=== PATIENT | female | born 2000 | race Caucasian/White ===

== ENCOUNTER 2023-01-31 17:26 | Inpatient (IN) | payer OTHER, SELFPAY ==
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
[2023-01-31 18:14] VITALS: BP 132/77
[2023-01-31 18:15] LABS: Hematocrit 36.8 % (36-46); Hemoglobin 12.6 g/dL (12.0-16.0); Mean Corpuscular HGB Conc 34.4 % (30-36); Mean Corpuscular Hemoglobin 28.7 PG (26-34); Mean Corpuscular Volume 83.5 fL (80-100); Platelet Count 159 X10^3/uL (150-400); Red Cell Distribution Width 13.4 % (11.6-14.8); White Blood Cell Count 15.5 X10^3/uL (4.5-11.0)
[2023-01-31 18:16] LABS: Add Manual Diff / Slide Review YES
[2023-01-31 18:18] VITALS: BP 132/77; PULSE 86; RESP 14; TEMP 36.8
[2023-01-31 19:03] LABS: Neutrophils Absolute Manual 12865 /uL (3000-5900); RBC Morphology Normal Morphology; Total Cells Counted 100
[2023-01-31 19:04] LABS: Toxic Granulation Present
--- NOTE | 2023-02-01 00:16 | PM.OBPNLAB ---
Date/Time Date Patient Seen: 01/31/23 Time Patient Seen: 23:30 Pain Control Pain control: tolerating well Comments: Cecilia is lying in bed, on her left side. Says this position makes it the most intense. Was up walking around earlier. Working hard with contractions - focused and breathing through them. Well supported by Jace. Still feeling contractions in low back and low abdomen. Pelvic Exam Dilation (cm): 6.5 Effacement (%): 80 Comments: SVE 6.5/85/-1 by SNM Membranes palpated intact Vital Signs: BP 121/74 HR 78 bpm RR 16/min Temp 36.5 temporal Contractions Date/Time contractions began: 01/31/23 at 0430 Contractions on admission: regular Monitor mode: External Contraction frequency (min): 3 Contraction duration (min): 1 Contraction pattern: Regular Status Comments: FHR with baseline 140, increases noted, decreases absent. Assessment and Plan Assessment: active labor Plan: continuous present management
[2023-02-01] MEDS: fentaNYL 100 MCG/2 ML INJ IV ×2 (03:16→04:20)
--- NOTE | 2023-02-01 03:38 | PM.OBPNLAB ---
Date/Time Date Patient Seen: 02/01/23 Time Patient Seen: 02:45 Pain Control Pain control: tolerating well Comments: Cecilia moved from laboring in the tub to hands and knees on the bed, breathing well through contractions. Well supported by Jace and SNM. Feeling pain all over but mostly in her back and front of her pelvis. Coping the best in hands and knees position. BP: 123/74 Pulse: 103bpm Temp: 36.7*C O2 Sat: 100% Pelvic Exam Dilation (cm): 6.5 Effacement (%): 90 station: -1 Amniotic membrane status: Bulging Contractions Monitor mode: External Contraction frequency (min): 3 Contraction pattern: Regular Contraction intensity: Strong/Firm Status status: Category l Heart Rate Baseline: 136 Monitor Variability: Moderate Assessment and Plan Comments: A: Term nullip Active labor Unchanged cervical dilation Bulging bag of vee Coping well with pain Reassuring FHR by doppler P: Discussed augmentation and pain interventions with patient Consented to Fentanyl IV 100mg for rest and AROM afterwards Anticipate continued labor, NSVB Reassess in 1hr or sooner if indicated
[2023-02-01] MEDS: LACTATED RINGERS 1,000 ML 100 ML IV ×3 (04:31→19:19)
--- NOTE | 2023-02-01 04:34 | PM.OBPNLAB ---
Date/Time Date Patient Seen: 02/01/23 Time Patient Seen: 04:00 Pain Control Pain control: narcotic analgesia Comments: Cecilia rested comfortably after first dose of fentanyl. Contraction pain returned to 8/10, tolerating and coping well. Additional dose of IV Fentanyl given, patient experienced naeusa and emisis. AROM, tolerated well. 500mL fluid bolus of LR was started. She is resting comfortably on her left side. BP:107/71 Pulse: 57bpm Temp:36.7*C Pelvic Exam Dilation (cm): 6.5 Effacement (%): 90 station: -1 Amniotic membrane status: Ruptured Comments: AROM with moderate amount clear, pink tinged fluid at approx 0430 Contractions Monitor mode: External Contraction frequency (min): 4 Contraction pattern: Regular Contraction intensity: Strong/Firm Status status: Category l Heart Rate Baseline: 128 Monitor Accelerations: Present Monitor Variability: Moderate Assessment and Plan Comments: A: Ruptured membranes Coping well with pain management Reassuring FHR via doppler P: Requested additional dose Fentanyl IV 100mg for rest Consented to AROM Anticipate continued labor, NSVB Reassess in 2 hours or sooner if indicated
--- NOTE | 2023-02-01 09:30 | PM.OBPRVD ---
Events: Labor Augmentation (AROM) Labor & Delivery Delivery date: 02/01/23 Intrapartal Events: Prolonged Labor > 20 hours Delivery augmentation: rupture of membranes Delivery monitor: external FHT Route of delivery: L&D Laceration Description: Vaginal - 1st Degree and Superficial (periurethral) Quantitative Blood Loss: 393 Anesthesia Type: None Narrative: Labor progressed well. She requested NO2 and utilized throughout second stage. She felt the spontaneous urge to push at approx 0625 and pushed for about 20min. A sterile cervical exam by SNM showed anterior lip from 6-8 o'clock with swollen cervix at 6 o'clock 100/0. She labored on her left side and another cervical exam showed complete and 0 station. She started pushing at 0725 and labored effectively for a average 2nd stage. FHR was reassuring by intermittent auscultation throughout 2nd stage. NSVB of baby in a standing position at 0855, shoulders delivered easily, terminal mec noted. Baby was passed through maternal legs to be held when she was ready to receive him, then placed on the bed as she was helped to laying down and skin to skin. Apgars 9/9. Pitocin was started at 350 mu/min. They remained skin to skin while cord was cut and placenta was delivered. Placenta delivered spontaneously with maternal efforts and appeared to be intact. 3 vessel cord clamped and cut by Jace and delivered in the typical amount of time after cord pulsing had stopped. Cord blood collected and sent for blood typing. Perineum inspected and found to be intact. Shallow periurethral lacerations noted bilaterally and 1st degree vaginal laceration hemostatic and not in need of repair. Blood loss measured and quantitative loss is 393 mL. Mom and baby left stable and is being initiated. Cecilia and Jace are thrilled to meet their baby. Nikole KRAUSE, CNM, IBCLC Yaquelin Cm RN, SNM [place] Baby 1: Infant gender: Male Presentation: vertex Position: Right Occiput Anterior Placenta delivery description: Spontaneous Cord Vessel Description: 3 Vessels score (1 min): 9 score (5 min): 9 Plan for aftercare: Routine care
[2023-02-01] MEDS: DERMOPLAST SPRAY 20% 60 ML 1 SPRAY TOP (11:06)
[2023-02-01] MEDS: KETOROLAC 30 MG/ML VIAL IV ×2 (11:07→19:55)
[2023-02-01] MEDS: LANOLIN OINT 7 GM 1 APPLIC TOP (11:07)
[2023-02-01] MEDS: ACETAMINOPHEN 325 MG TABLET 975 MG PO ×2 (14:15→22:19)
[2023-02-01] MEDS: METHYLERGONOVINE 0.2 MG/ML VIAL IM (15:58)
[2023-02-01] MEDS: OXYTOCIN PREMIX 30 UNIT/500 ML PLAST..BAG 200 UNIT IV (16:20)
[2023-02-01] MEDS: TRANEXAMIC ACID 1,000 MG in SODIUM CHLORIDE 0.9% 100 ML 200 MG IV (17:14)
--- NOTE | 2023-02-01 17:41 | P.PNOB_ITS ---
Subjective - OB Subjective Interval history: Day of Delivery: 9 hours s/p NSBV with a 1st degree perineal laceration and 443mL QBL at the . Has had normal fundal checks with small, normal bleeding and as able to void in the shower around 1000. Was taking a nap and awoke gushing blood at 1525. Was assisted to the bathroom where she passed multiple large clots. Bladder was scanned for 46mL and patient was bale to void 50mL. A second bag of 30u of pitocin in 500mL LR was started and 0.2mg IM Methergine was given. Bleeding slowed after clots were passed and funds has remained firm at U-1. 2866mL total QBL after all pads and clots weighed. Cecilia is curently sitting up in bed, nursing her son. Denies feeling lightheaded or dizzy and reports bleeding had remained minimal since 1525 episode. remains supportive at her side. Exam Vital Signs (past 8 hours): BP 116/85, HR 95, T 98.7F Temporal Other: Fundus firm @ U-1, lochia scant, minimal edema. Objective Labs 01/31/23 17:14 Labs: Laboratory Results - last 24 hr 01/31/23 01/31/23 17:14 17:14 WBC 15.5 H RBC 4.40 Hgb 12.6 Hct 36.8 MCV 83.5 MCH 28.7 MCHC 34.4 RDW 13.4 Plt Count 159 Neut % (Auto) Not Reportable Lymph % (Auto) Not Reportable [place] % (Auto) Not Reportable Eos % (Auto) Not Reportable Baso % (Auto) Not Reportable Lymph # (Auto) Not Reportable [place] # (Auto) Not Reportable Baso # (Auto) Not Reportable Total Counted 100 Seg Neutrophils % 83.0 H Band Neutrophils % 0.0 L Lymphocytes % (Manual) 11.0 L Atypical Lymphs % 0.0 Monocytes % (Manual) 4.0 Eosinophils % (Manual) 0.0 L Basophils % (Manual) 0.0 Neutrophils # (Manual) 32324 H Toxic Granulation Present H RBC Morphology Normal morphology Blood Type O Positive Antibody Screen Negative Assessment & Plan Assessment and Plan (1) hemorrhage: Status: Acute Assessment and plan: stable Plan day: 0 Comments: Suspect urine mixed with blood loss in bed. CBC in 6 hours. 2L IVFB and close monitoring. TXA IV and PO methergine series initiated. Notified [facility]/ notified and agreed with plan. Time Spent With Patient Time: Total time spent is greater than 50% in coordination of care (as documented) at patient's floor/unit and/or counseling patient: Time with patient: 15-24 minutes
[2023-02-01] MEDS: METHYLERGONOVINE 0.2 MG TABLET PO (22:19)
[2023-02-02 00:23] LABS: Add Manual Diff / Slide Review NO; Basophils Absolute Auto 0 /uL (0-100); Basophils Percent Auto 0.2 % (0-2); Eosinophils Absolute Auto 0 /uL (0-450); Eosinophils Percent Auto 0.3 % (2-4); Hematocrit 25.6 % (36-46); Hemoglobin 8.6 g/dL (12.0-16.0); Lymphocytes Absolute Auto 1800 /uL (1100-4500); Lymphocytes Percent Auto 12.4 % (25-40); Mean Corpuscular HGB Conc 33.7 % (30-36); Mean Corpuscular Hemoglobin 28.4 PG (26-34); Mean Corpuscular Volume 84.1 fL (80-100); Monocytes Absolute Auto 1200 /uL (0-900); Monocytes Percent Auto 8.4 % (3-14); Neutrophils Absolute Auto 11200 /uL (1500-7000); Neutrophils Percent Auto 78.7 % (50-75); Platelet Count 128 X10^3/uL (150-400); Red Blood Cell Count 3.05 X10^6/uL (4.0-5.2); Red Cell Distribution Width 13.5 % (11.6-14.8); White Blood Cell Count 14.2 X10^3/uL (4.5-11.0)
[2023-02-02] MEDS: METHYLERGONOVINE 0.2 MG TABLET PO ×3 (04:44→19:34)
[2023-02-02] MEDS: KETOROLAC 30 MG/ML VIAL IV (04:44)
[2023-02-02] MEDS: IRON SUCROSE 300 MG in SODIUM CHLORIDE 0.9% 250 ML 176.667 MG IV (08:00)
[2023-02-02] MEDS: LANOLIN OINT 7 GM 1 APPLIC TOP (09:46)
[2023-02-02 09:47] VITALS: TEMP 36.6
[2023-02-02] MEDS: ACETAMINOPHEN 325 MG TABLET 975 MG PO ×2 (09:47→18:43)
--- NOTE | 2023-02-02 09:54 | P.PNOB_ITS ---
Subjective - OB Subjective Interval history: PPD1: Stable s/p NSVB w/ 1st degree vaginal laceration with PPH 6 hours . Sitting up her baby, requiring support and encouragement for ambulation d/t discomfort, voiding normally when prompted. No longer feeling light headed or dizzy, feeling better after IV iron. Tolerating a general diet. Pain plan currently is Tylenol and IV toradol, she has been hesitant to take available pain medication. She says she has felt trickling of blood, but no gushes or passing of clots. Bonding well with baby. Partner present and supportive. Exam Vital Signs (past 8 hours): - 02/02/23 0552 Temperature 98.3 F HR 100 RR:16 BP: 100/57 Sp O2: 99% RA Other: Fundus firm U-1 Lochia: rubra, scant, no clots Perineum intact, minimal edema Objective Labs 02/02/23 00:12 Labs: Laboratory Results - last 24 hr 02/02/23 00:12 WBC 14.2 H RBC 3.05 L Hgb 8.6 L Hct 25.6 L MCV 84.1 MCH 28.4 MCHC 33.7 RDW 13.5 Plt Count 128 L Neut % (Auto) 78.7 H Lymph % (Auto) 12.4 L [place] % (Auto) 8.4 Eos % (Auto) 0.3 L Baso % (Auto) 0.2 Neut # (Auto) 20641 H Lymph # (Auto) 1800 [place] # (Auto) 1200 H Eos # (Auto) 0 Baso # (Auto) 0 Assessment & Plan Assessment and Plan (1) hemorrhage: Status: Acute Assessment and plan: Stable no further bleeding (2) Anemia, : Status: Acute Assessment and plan: IV iron one dose given this morning, second dose planned for tomorrow Plan day: 1 plan OB: routine care and other Comments: Recommend additional 24hours of observation, discharge tomorrow d/t PPH and anemia. Time Spent With Patient Time: Total time spent is greater than 50% in coordination of care (as documented) at patient's floor/unit and/or counseling patient: Time with patient: Greater than 35 minutes
[2023-02-02 10:25] VITALS: TEMP 36.6
[2023-02-02] MEDS: DOCUSATE 100 MG CAPSULE PO ×2 (10:25→19:34)
[2023-02-02] MEDS: OXYCODONE IR 5 MG TABLET PO (10:25)
[2023-02-02] MEDS: IBUPROFEN 600 MG TABLET PO ×2 (16:23→22:38)
[2023-02-03] VITALS (13 sets, daily range): BP systolic 113–130; BP diastolic 64–87; PULSE 87–110; RESP 15–16; TEMP 36.8–37.1
[2023-02-03] MEDS: ACETAMINOPHEN 325 MG TABLET 975 MG PO ×2 (03:45→15:38)
[2023-02-03] MEDS: IBUPROFEN 600 MG TABLET PO ×2 (06:39→15:37)
[2023-02-03] MEDS: IRON SUCROSE 300 MG in SODIUM CHLORIDE 0.9% 250 ML 176.667 MG IV (06:40)
[2023-02-03 07:15] LABS: Basophils Absolute Auto 0 /uL (0-100); Basophils Percent Auto 0.3 % (0-2); Eosinophils Absolute Auto 300 /uL (0-450); Hemoglobin 7.1 g/dL (12.0-16.0); White Blood Cell Count 10.2 X10^3/uL (4.5-11.0)
[2023-02-03 07:20] LABS: Add Manual Diff / Slide Review NO; Lymphocytes Absolute Auto 1400 /uL (1100-4500); Lymphocytes Percent Auto 13.5 % (25-40); Mean Corpuscular HGB Conc 34.6 % (30-36); Mean Corpuscular Hemoglobin 29.7 PG (26-34); Mean Corpuscular Volume 85.7 fL (80-100); Monocytes Absolute Auto 700 /uL (0-900); Monocytes Percent Auto 6.5 % (3-14); Neutrophils Absolute Auto 7800 /uL (1500-7000); Neutrophils Percent Auto 76.7 % (50-75); Platelet Count 116 X10^3/uL (150-400); Red Cell Distribution Width 13.1 % (11.6-14.8)
--- NOTE | 2023-02-03 07:35 | P.DS_ITS ---
Discharge Providers Provider Date of admission: 01/31/23 17:26 Discharge Date: 02/03/23 Consults: 02/02/23 09:23 Consult to Nursing Administrator Routine Comment: Discharge provider: Karine Borges CNM Summary Hospital Course Date Patient Seen: 02/03/23 Time Patient Seen: 16:30 Diagnoses: O70.0, O72.1, D64.9 Hospital Course: PPD2: Stable s/p NSBV with 1st degree vaginal laceration and hemorrhage at 6 hours . Vaginal bleeding has remained light, without clots since 02/01/23 PPH. Has received 2 doses of IV Fe was feeling well during rounds at 0745. Then had episode of near syncope around 0800 with additional drop in H/H noted on CBC this morning. Was counseled on the risks and benefits of a blood transfusion, which she consented to. 2 units PRBCs were transfused and she is feeling much better. She also received a pelvic ultrasound which was not concerning for retained POCs. Voiding, ambulating and independently without feeling light headed or dizzy. Tolerating a general diet. Pain is well controlled with PO medication. Partner is supportive at her side and will be with her at home for continuous support. Peripartum Data Delivery Method: Natural Vaginal Laceration Description: Vaginal - 1st Degree Episiotomy description: None 1: Gender: Male Disposition of : home Discharge Diagnosis (1) hemorrhage: Start Date: 02/01/23 Status: Acute Problem Details: stable with no recurrence of heavy bleeding (2) Anemia, : Status: Acute Problem Details: treated with IV Fe (600mg total) 2 units of PRBCs ordered after 02/03/23 CBC resulted and patient became symptomatic for hypovolemia. Consulted [facility]/ Dr. Martni at time of hemorrhage and prior to transfusion. Status at Discharge Cognitive/behavioral status at discharge: oriented and calm Functional status at discharge: independent ambulation Overall status at discharge: patient is progressing back to baseline Time Spent with Patient Time attestation: Total time spent providing and/or coordinating discharge services: Objective Labs 02/03/23 06:48 Exam Vital Signs (past 8 hours): HR 87bpm, BP 105/58, RR 16, T 98.0F SpO2 98% on RA Other: fundus firm @ u-2, lochia scant, no clots. Perineum intact with minimal edema. Discharge Plan Discharge Plan Patient Disposition: Home Discharge orders & Medications Prescriptions: New docusate sodium 100 mg Capsule 100 mg PO BID 14 Days Qty: 28 0RF ibuprofen 600 mg Tablet 600 mg PO Q6HR PRN (Reason: Pain, Mild (1-3)) 14 Days Qty: 60 0RF Continued prenat.vits,jacquie,fqs-zzgv-hbetu Tablet See Protocol PO DAILY Protocol: TITRATE PER PROTOCOL Follow up/Referrals: Nikole Hays, BABATUNDE, NELIDA [[employer]] - (Follow-up with CNMs at 1 week , in the office for a check-in and CBC. Follow up with CNMs at 2 weeks by phone and 6 weeks in office, as scheduled. Appointments are in your email. ) Diet/Activity/Treatments Diet: Diet as Tolerated and Regular Activity: pelvic rest x 6 weeks Skin/Wound/Dressing Care Report to your healthcare provider any signs of infection, such as:: chills, fever, increased pain, unusual drainage and unusual redness Visit Report/Discharge Packet Instructions: DI for Labor and Delivery, Vaginal , DI for Depression Stand Alone Forms: Discharge: Care, Patient Portal/API, Stroke Signs & Symptoms Discharges patient from system. Discharge Date/Time: 02/03/23 20:32
[2023-02-03 08:16] LABS: Hematocrit 20.5 % (36-46)
[2023-02-03] MEDS: DOCUSATE 100 MG CAPSULE PO (08:51)
--- NOTE | 2023-02-03 13:19 | DI.US.S_ITS ---
PROCEDURE: US PELVIC COMPLETE INDICATIONS: HEMORRAGE ?RETAINED PRODUCTS. 2 DAYS . TECHNIQUE: Real-time scanning was performed of the pelvic organs, with image documentation. Additional endovaginal scanning was necessary due to incomplete visualization of the adnexal and endometrial structures by transabdominal scanning. COMPARISON: None. FINDINGS: Uterus: Uterus is anteverted and normal in size at 19.5 x 14.5 x 7.9 cm. The myometrium is heterogeneous. The endometrium measures 15.1 mm combined thickness and heterogeneous in echotexture. There is fluid collection within the in the endometrial cavity. Ovaries: The right ovary measures 3.4 x 2.5 x 2.0 cm, with a calculated ovarian volume of 8.8 cc. The left ovary measures 3.5 x 1.8 x 1.9 cm, with a calculated ovarian volume of 6.2 cc. The ovaries have a normal sonographic appearance. More than 12 follicles can be seen in each ovary. No adnexal masses are seen. Other: No pathologic free abdominal or pelvic fluid. IMPRESSION: 1. Uterus is enlarged consistent with recent . 2. Endometrium is thickened and heterogeneous. There is a trace amount of fluid within the endometrial cavity. On Doppler ultrasound, there is no increased vascularity in endometrium. Cannot definitively exclude retained products conception. If clinically indicated, consider follow-up imaging. We strive to produce accurate, complete, and clear reports of imaging services. To assist us in improving patient care, this report was composed using standard report templates and voice recognition software. Therefore, it may contain abnormal punctuation, insertions and/or omissions. Occasional wrong-word or sound-alike substitutions may occur. Though we review the report and make efforts to correct it, we do recommend that the report be read carefully in proper context to recognize any text inaccuracies. Dictated by: Yonas Bennett M.D. on 02/03/2023 at 15:24 Approved by: Yonas Bennett M.D. on 02/03/2023 at 15:34
== END 2023-02-03 20:32 | disposition home or self-care (01) | DRG 807 ==
PROVIDERS: Nurse Practitioner Obstetrics & Gynecology; Admitting Provider Advanced Practice Midwife; Referring Provider Advanced Practice Midwife; Visit Provider Advanced Practice Midwife
DX: O63.0 Prolonged first stage (of labor) (principal); Z37.0 Single live birth; Z3A.39 39 weeks gestation of pregnancy; O90.81 Anemia of the puerperium; D50.0 Iron deficiency anemia secondary to blood loss (chronic)
CPT/HCPCS: 36415; 36430; 59050; 76856; 85007; 85025; 86850; 86900; 86901; P9016; G0379; J1756; J1885; J2210; J2590; J3010

== ENCOUNTER → 2023-10-07 13:40 | Outpatient (CLI) | payer OTHER, SELFPAY ==
--- NOTE | 2023-10-07 13:45 | DI.US.S_ITS ---
PROCEDURE: US OB <= 14 WK FETUS ADD GEST INDICATIONS: VIABILITY OUTSIDE/PRIOR DATING DATA: Last menstrual period (LMP): 08/08/2023. LMP-based estimated date of delivery (HANK): 05/14/2024. First dating scan (date and location): 10/07/2023. Estimated date of delivery (HANK) from first dating scan: 05/31/2024. The calculations are made using the ultrasound HANK of 05/31/2024. TECHNIQUE: Real-time scanning was performed of the fetuses and maternal pelvic organs, with image documentation. Endovaginal scanning: Performed for better visualization of the fetuses and maternal adnexal structures. COMPARISON: None. FINDINGS: General: An intrauterine diamniotic/ dichorionic twin is present, as evidenced by separate placental sites and/or intervening membrane thickness of greater than 2 mm at this early gestational age. Embryo A: [place]-rump length measures 0.6 cm, consistent with 6 weeks and 2 days. heart rate of 120. Heart rate: 120 Embryo B: [place]-rump length measures 0.5 cm, consistent with 6 weeks and 1 day. Heart rate: 117 Possible perigestational bleed measuring 2.6 x 2.0 x 1.0 cm. Maternal organs: Ovaries are within normal limits, bilateral ovarian corpus luteal cyst. Prominent adnexal veins are noted. IMPRESSION: 1. Live intrauterine diamniotic dichorionic twin . 2. Possible perigestational bleed measuring 2.6 x 2.0 x 1.0 cm. 3. Discordant dates with last menstrual period. By last menstrual period, estimated gestational age is 8 weeks and 4 days, estimated gestational age is 6 weeks and 2 days and 6 weeks 1 day by ultrasound respectively. We strive to produce accurate, complete, and clear reports of imaging services. To assist us in improving patient care, this report was composed using standard report templates and voice recognition software. Therefore, it may contain abnormal punctuation, insertions and/or omissions. Occasional wrong-word or sound-alike substitutions may occur. Though we review the report and make efforts to correct it, we do recommend that the report be read carefully in proper context to recognize any text inaccuracies. Dictated by: Long Solano M.D. on 10/07/2023 at 17:12 Approved by: Long Solano M.D. on 10/07/2023 at 17:17
[2023-10-07 17:03] LABS: Pregnancy Test Serum,Qual Positive (Negative)
== END ==
PROVIDERS: Referring Provider Advanced Practice Midwife; Visit Provider Advanced Practice Midwife
DX: O30.041 Twin pregnancy, dichorionic/diamniotic, first trimester (principal); Z3A.01 Less than 8 weeks gestation of pregnancy
CPT/HCPCS: 36415; 76801; 76802; 76817; 84703

== ENCOUNTER → 2023-10-29 12:43 | Outpatient (ROUT) | payer OTHER, SELFPAY ==
[2023-10-29 14:35] LABS: Urine N gonorrhoeae NOT DETECTED
[2023-10-29 14:49] LABS: Urine Chlamydia NOT DETECTED
== END ==
PROVIDERS: Visit Provider Specialist
DX: Z11.3 Encounter for screening for infections with a predominantly sexual mode of transmission (principal); Z3A.09 9 weeks gestation of pregnancy
CPT/HCPCS: 87491; 87591

== ENCOUNTER → 2023-11-17 10:11 | Outpatient (CLI) | payer OTHER, SELFPAY ==
[2023-11-17 11:33] LABS: Natera Collection Specimen Collected
[2023-11-17 11:36] LABS: Add Manual Diff / Slide Review NO; Basophils Absolute Auto 0 /uL (0-100); Basophils Percent Auto 0.3 % (0-2); Eosinophils Absolute Auto 100 /uL (0-450); Eosinophils Percent Auto 1.6 % (2-4); Hematocrit 37.9 % (36-46); Hemoglobin 13.2 g/dL (12.0-16.0); Lymphocytes Absolute Auto 1400 /uL (1100-4500); Lymphocytes Percent Auto 16.4 % (25-40); Mean Corpuscular HGB Conc 34.7 % (30-36); Mean Corpuscular Hemoglobin 29.4 PG (26-34); Mean Corpuscular Volume 84.6 fL (80-100); Monocytes Absolute Auto 400 /uL (0-900); Monocytes Percent Auto 4.5 % (3-14); Neutrophils Absolute Auto 6700 /uL (1500-7000); Neutrophils Percent Auto 77.2 % (50-75); Platelet Count 227 X10^3/uL (150-400); Red Blood Cell Count 4.48 X10^6/uL (4.0-5.2); Red Cell Distribution Width 13.8 % (11.6-14.8); White Blood Cell Count 8.7 X10^3/uL (4.5-11.0)
[2023-11-18 04:19] LABS: RPR Screen Non Reactive (Non Reactive)
[2023-11-18 09:28] LABS: Varicella IgG Antibody <135 index (Immune >165)
[2023-11-18 16:44] LABS: Hepatitis B Surface Antigen NEGATIVE s/c (NEGATIVE); Rubella Antibody IgG 32.5 IU/mL (>15)
[2023-11-18 17:01] LABS: HIV 1 & 2 Ab/Ag 4th Gen Combo NEGATIVE (NEGATIVE); Hep C Virus Ab w/Reflex Quant NEGATIVE s/c (NEGATIVE)
== END ==
PROVIDERS: Obstetrics & Gynecology; PCP Specialist; Referring Provider Specialist; Visit Provider Specialist
DX: O30.009 Twin pregnancy, unspecified number of placenta and unspecified number of amniotic sacs, unspecified trimester (principal); Z3A.12 12 weeks gestation of pregnancy
CPT/HCPCS: 36415; 80055; 86787; 86803; 86850; 86900; 86901; 87389

== ENCOUNTER → 2024-01-26 12:04 | Outpatient (CLI) | payer OTHER, SELFPAY ==
--- NOTE | 2024-01-26 12:06 | DI.US.S_ITS ---
PROCEDURE: US OB >= 14 WEEKS FETUS INDICATIONS: 20 Week Anatomy Scan OUTSIDE/PRIOR DATING DATA: Last menstrual period (LMP): 08/08/2023. LMP-based estimated date of delivery (HANK): 05/14/2024. First dating scan (date and location): 10/07/2023. Estimated date of delivery (HANK) from first dating scan: 05/31/2024. The calculations are made using the ultrasound HANK of 05/31/2024. TECHNIQUE: Real-time scanning was performed of the fetuses, with image documentation and biometric measurements. Endovaginal scanning: Not performed COMPARISON: [facility], , US OB >= 14 WEEKS FETUS, 12/17/2023, 15:42. [facility], , US OB <= 14 WEEKS FETUS, 01/26/2024, 11:47. FINDINGS: General: An intrauterine dichorionic-diamniotic twin is present, as evidenced by separate placentas, differing sexes, or an intervening membrane of greater than 2 mm. Amniotic fluid index (composite): 18.9 cm and 16.8 cm. Maternal cervical canal: 3.5 cm long. Normal lower limit is 2.5 cm. FETUS A: Fetus is located on the maternal left side, and is in vertex presentation. Largest amniotic fluid pocket: 5.5 cm; normal range is 2-8 cm. Placental position is anterior , without previa. heart rate: 141 beats per minute. biometrics: Biparietal diameter: 5.8 cm, 23 weeks 4 days Head circumference: 20.4 cm, 22 weeks 4 days Abdominal circumference: 17.7 cm, 22 weeks 4 days Femur length: 3.8 cm, 22 weeks 2 days Clinically estimated gestational age: 22 weeks 0 days Composite gestational age from present scan: 22 weeks 5 days Estimated weight and percentile: 509 g, 70% Anatomic survey: Neuro: Ventricles are normal at less than 10 mm. Cisterna magna is normal at 3-11 mm. Cerebellum is normal in size and morphology. Nuchal skin fold: Normal at less than 6 mm between 14 and 21 weeks gestational age. Face: Nose and lips, facial profile are normal. Spine: No evidence for spina bifida. Heart: 4 chambered heart is present, with normal ventricular outflow tracts. Diaphragm: Diaphragm is intact. Stomach: Left-sided stomach is present. Kidneys: No hydronephrosis. Normal ranges are less than 5 mm in 2nd trimester, less than 7 mm in 3rd trimester. Cord: 3 vessel cord has orthotopic insertion. Bladder: Normal in size. Extremities: All 4 extremities are visualized. FETUS B: Fetus is located on the maternal right side, and is in variable position, breech to vertex presentation. Largest amniotic fluid pocket: 5.6 cm; normal range is 2-8 cm. Placental position is anterior , without previa. heart rate: 149 beats per minute. biometrics: Biparietal diameter: 5.5 cm, 22 weeks 6 days Head circumference: 20.6 cm, 22 weeks 5 days Abdominal circumference: 17.9 cm, 22 weeks 5 days Femur length: 3.9 cm, 22 weeks 4 days Clinically estimated gestational age: 22 weeks 0 days Composite gestational age from present scan: 22 weeks 5 days Estimated weight and percentile: 523 g, 77% Anatomic survey: Neuro: Ventricles are normal at less than 10 mm. Cisterna magna is normal at 3-11 mm. Cerebellum is normal in size and morphology. Nuchal skin fold: Normal at less than 6 mm between 14 and 21 weeks gestational age. Face: Nose and lips, facial profile are normal. Spine: No evidence for spina bifida. Heart: 4 chambered heart is present, with normal ventricular outflow tracts. Diaphragm: Diaphragm is intact. Stomach: Left-sided stomach is present. Kidneys: No hydronephrosis. Normal ranges are less than 5 mm in 2nd trimester, less than 7 mm in 3rd trimester. Cord: 3 vessel cord has orthotopic insertion. Bladder: Normal in size. Extremities: All 4 extremities are visualized. IMPRESSION: 1. Live diamniotic and dichorionic twin consistent with 22 weeks and 5 days. 2. Normal anatomic survey for both twins. 3. Placental venous lakes are noted with the largest measuring 6.3 x 2.5 x 2.5 cm. Recommend attention on follow-up. We strive to produce accurate, complete, and clear reports of imaging services. To assist us in improving patient care, this report was composed using standard report templates and voice recognition software. Therefore, it may contain abnormal punctuation, insertions and/or omissions. Occasional wrong-word or sound-alike substitutions may occur. Though we review the report and make efforts to correct it, we do recommend that the report be read carefully in proper context to recognize any text inaccuracies. Dictated by: Long Solano M.D. on 01/26/2024 at 15:53 Approved by: Long Solano M.D. on 01/26/2024 at 15:58
== END ==
PROVIDERS: PCP Specialist; Referring Provider Obstetrics & Gynecology; Visit Provider Obstetrics & Gynecology
DX: O30.042 Twin pregnancy, dichorionic/diamniotic, second trimester (principal); Z3A.20 20 weeks gestation of pregnancy
CPT/HCPCS: 76811; 76812

== ENCOUNTER → 2024-02-23 11:03 | Outpatient (CLI) | payer OTHER, SELFPAY ==
[2024-02-23 13:10] LABS: Hematocrit 31.5 % (36-46); Hemoglobin 10.8 g/dL (12.0-16.0)
[2024-02-23 13:39] LABS: GTT (PREG) 1 Hour PP 50gm Dose 116 mg/dL (76-139)
== END ==
PROVIDERS: Referring Provider Obstetrics & Gynecology; Visit Provider Obstetrics & Gynecology
DX: Z34.82 Encounter for supervision of other normal pregnancy, second trimester (principal); Z3A.26 26 weeks gestation of pregnancy
CPT/HCPCS: 36415; 82950; 85014; 85018

== ENCOUNTER 2024-03-25 12:49 | Outpatient (CLI) | payer OTHER, SELFPAY ==
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
== END 2024-03-25 13:35 | disposition home or self-care (01) ==
LOC: LABOR 12:56 → OB 03-28 06:18
PROVIDERS: Referring Provider Obstetrics & Gynecology; Visit Provider Obstetrics & Gynecology
DX: Z03.71 Encounter for suspected problem with amniotic cavity and membrane ruled out (principal); O30.043 Twin pregnancy, dichorionic/diamniotic, third trimester; Z3A.30 30 weeks gestation of pregnancy
CPT/HCPCS: 59025; 84112; G0378; G0379

== ENCOUNTER 2024-03-30 11:34 | Outpatient (CLI) | payer OTHER, SELFPAY ==
--- NOTE | 2024-03-30 11:37 | DI.US.S_ITS ---
PROCEDURE: US OB LIMITED INDICATIONS: low brigitte, grade 3 placenta, di di twin , 31 weeks OUTSIDE/PRIOR DATING DATA: The calculations are made using the working HANK of 05/30/2024. TECHNIQUE: Real-time scanning was performed of the fetuses, with image documentation and biometric measurements. Endovaginal scanning: No COMPARISON: None. FINDINGS: General: An intrauterine dichorionic-diamniotic twin is present, as evidenced by separate placentas, differing sexes, or an intervening membrane of greater than 2 mm. Composite amniotic fluid index: 11.1/15.7 cm Maternal cervical canal: 4 1 cm long. Normal lower limit is 2.5 cm. FETUS A: Fetus is located on the maternal left side, and is in breech presentation. Largest amniotic fluid pocket: 3.3 cm, normal is 2-8 cm. Placental position is anterior , without previa. heart rate: 132 beats per minute. biometrics: Biparietal diameter: 8.1 cm, 32 week 3 day Head circumference: 30.3 cm, 33 week 5 day Abdominal circumference: 26.9 cm, 31 week 0 day Femur length: 6.2 cm, 32 week 1 day Clinically estimated gestational age: 31 week 2 day Composite gestational age from present scan: 32 week 2 day Estimated weight and percentile: 1815 g, 51 percentile FETUS B: Fetus is located on the maternal right side, and is in breech presentation. Largest amniotic fluid pocket: 4.7 cm, normal is 2-8 cm. Placental position is anterior, without previa. heart rate: 144 beats per minute. biometrics: Biparietal diameter: 7.6 cm, 30 week 4 day Head circumference: 28.4 cm, 31 week 1 day Abdominal circumference: 27.2 cm, 31 week 2 day Femur length: 6.1 cm, 31 week 3 day Clinically estimated gestational age: 31 week 2 day Composite gestational age from present scan: 31 week 1 day Estimated weight and percentile: 1727 g, 36 percentile IMPRESSION: Twin live consistent with 31-32 week gestation. Approved by: Oracio Pink M.D. on 03/30/2024 at 17:09
== END 2024-03-30 13:20 | disposition home or self-care (01) ==
LOC: LABOR 11:47 → OB 04-04 07:23
PROVIDERS: Referring Provider Obstetrics & Gynecology; Visit Provider Obstetrics & Gynecology
DX: O30.003 Twin pregnancy, unspecified number of placenta and unspecified number of amniotic sacs, third trimester (principal); Z3A.31 31 weeks gestation of pregnancy
CPT/HCPCS: 59025; 76815; 76816; 93975; G0378; G0379

== ENCOUNTER 2024-04-06 10:45 | Outpatient (CLI) | payer OTHER, SELFPAY | END 2024-04-06 11:40 | disposition home or self-care (01) | LOC: LABOR 11:27 → OB 04-13 15:41 | PROVIDERS: Referring Provider Obstetrics & Gynecology; Visit Provider Obstetrics & Gynecology | DX: O30.003 Twin pregnancy, unspecified number of placenta and unspecified number of amniotic sacs, third trimester (principal); Z3A.32 32 weeks gestation of pregnancy | CPT/HCPCS: 59025; G0378; G0379 ==

== ENCOUNTER 2024-04-13 10:29 | Outpatient (CLI) | payer OTHER, SELFPAY | END 2024-04-13 11:49 | disposition home or self-care (01) | LOC: LABOR 10:47 → OB 04-14 15:31 | PROVIDERS: Referring Provider Obstetrics & Gynecology; Visit Provider Obstetrics & Gynecology | DX: O30.003 Twin pregnancy, unspecified number of placenta and unspecified number of amniotic sacs, third trimester (principal); Z3A.33 33 weeks gestation of pregnancy | CPT/HCPCS: 59025; G0378; G0379 ==

== ENCOUNTER → 2024-04-20 08:38 | Outpatient (CLI) | payer OTHER, SELFPAY ==
[2024-04-21 14:22] LABS: Strep Grp B PCR POS for Grp B Strep
== END ==
LOC: LAB 08:43
PROVIDERS: Visit Provider Obstetrics & Gynecology
DX: Z34.83 Encounter for supervision of other normal pregnancy, third trimester (principal); Z3A.34 34 weeks gestation of pregnancy
CPT/HCPCS: 87653

== ENCOUNTER 2024-04-20 08:40 | Observation (INO) | payer OTHER, SELFPAY ==
--- NOTE | 2024-04-20 10:11 | DI.US.S_ITS ---
PROCEDURE: US OB LIMITED INDICATIONS: PLACENTAL GRADING VARIATION - TWIN GROWTH OUTSIDE/PRIOR DATING DATA: Last menstrual period (LMP): 08/08/2023. LMP-based estimated date of delivery (HANK): 05/14/2024. First dating scan (date and location): 10/07/2023. Estimated date of delivery (HANK) from first dating scan: 05/31/2024. The calculations are made using the clinical HANK of 05/30/2024. TECHNIQUE: Real-time scanning was performed of the fetuses, with image documentation and biometric measurements. Umbilical artery Doppler was performed on fetus A. Endovaginal scanning: Not performed COMPARISON: [facility], OB LIMITED, 03/30/2024, 12:20. FINDINGS: General: An intrauterine dichorionic-diamniotic twin is present, as evidenced by separate placentas, differing sexes, or an intervening membrane of greater than 2 mm. Maternal cervical canal: Not evaluated. FETUS A: (Note inversusly labeled on the prior exam). Fetus is located on the maternal left side, and is in breech presentation. Amniotic fluid index: 7 cm. Largest amniotic fluid pocket: 5.1 cm; normal range is 2-8 cm. Placental position is anterior, without previa. There is placental calcifications again seen, which is greater than compared to twin B. heart rate: 127 beats per minute. biometrics: Biparietal diameter: 8.3 cm, 33 weeks 2 days. 20th percentile Head circumference: 30.6 cm, 34 weeks 1 day. 13th percentile Abdominal circumference: 30.0 cm, 34 weeks 0 days. 44th percentile Femur length: 6.4 cm, 33 weeks 1 day. 14th percentile Clinically estimated gestational age: 34 weeks 2 days Composite gestational age from present scan: 33 weeks 5 days. Estimated weight and percentile: 2246 g, 27th percentile. Umbilical artery Doppler: 2.4, 2.4, 3.4. Preserved diastolic flow. FETUS B: Fetus is located on the maternal right side, and is in breech -> vertex presentation. Amniotic fluid index: 8 cm. Largest amniotic fluid pocket: 4.8 cm; normal range is 2-8 cm. Placental position is anterior, without previa. A few placental calcifications. heart rate: 144 beats per minute. biometrics: Biparietal diameter: 9.0 cm, 36 weeks 3 days. 95th percentile Head circumference: 32.2 cm, 36 weeks 3 days. 69th percentile Abdominal circumference: 33.8 cm, 37 weeks 5 days. Out of range. Femur length: 6.8 cm, 35 weeks 0 days. 97th percentile. Clinically estimated gestational age: 34 weeks 2 days Composite gestational age from present scan: 36 weeks 3 days. Estimated weight and percentile: 3022 g, 97th percentile. IMPRESSION: 1. Diamniotic dichorionic living intrauterine pregnancies at 34 weeks 2 days based on prior dating. Twin A is in the 27th percentile for weight. (Smaller than twin B). Twin B is in the 97th percentile for weight. Possible macrosomia. 2. Amniotic fluid is within normal limits. Twin A placenta demonstrates increased internal calcifications. 3. Umbilical artery Doppler on twin A is felt to be within normal limits. We strive to produce accurate, complete, and clear reports of imaging services. To assist us in improving patient care, this report was composed using standard report templates and voice recognition software. Therefore, it may contain abnormal punctuation, insertions and/or omissions. Occasional wrong-word or sound-alike substitutions may occur. Though we review the report and make efforts to correct it, we do recommend that the report be read carefully in proper context to recognize any text inaccuracies. Dictated by: Cholo Nick M.D. on 04/20/2024 at 13:25 Approved by: Cholo Nick M.D. on 04/20/2024 at 13:44
== END 2024-04-20 12:00 | disposition home or self-care (01) ==
PROVIDERS: Admitting Provider Obstetrics & Gynecology; Referring Provider Obstetrics & Gynecology; Visit Provider Obstetrics & Gynecology
DX: O30.003 Twin pregnancy, unspecified number of placenta and unspecified number of amniotic sacs, third trimester (principal); Z3A.34 34 weeks gestation of pregnancy
CPT/HCPCS: 59025; 76812; 76815; 87653; 93975; G0378; G0379

== ENCOUNTER 2024-04-25 19:03 | Outpatient (CLI) | payer OTHER, SELFPAY | END 2024-04-25 19:44 | disposition home or self-care (01) | LOC: OB 05-01 09:01 | PROVIDERS: Referring Provider Obstetrics & Gynecology; Visit Provider Obstetrics & Gynecology | DX: O36.8130 Decreased fetal movements, third trimester, not applicable or unspecified (principal); O30.003 Twin pregnancy, unspecified number of placenta and unspecified number of amniotic sacs, third trimester; Z3A.35 35 weeks gestation of pregnancy | CPT/HCPCS: 59025; G0378; G0379 ==

== ENCOUNTER 2024-04-27 10:31 | Outpatient (CLI) | payer OTHER, SELFPAY | END 2024-04-27 12:05 | disposition home or self-care (01) | LOC: LABOR 10:43 → OB 05-09 07:54 | PROVIDERS: Referring Provider Obstetrics & Gynecology; Visit Provider Obstetrics & Gynecology | DX: O30.043 Twin pregnancy, dichorionic/diamniotic, third trimester (principal); O30.003 Twin pregnancy, unspecified number of placenta and unspecified number of amniotic sacs, third trimester; O47.03 False labor before 37 completed weeks of gestation, third trimester; Z3A.35 35 weeks gestation of pregnancy | CPT/HCPCS: 59025; G0378; G0379 ==

== ENCOUNTER 2024-04-28 03:47 | Inpatient (IN) | payer OTHER, SELFPAY ==
[2024-04-28] MEDS: TERBUTALINE 1 MG/ML VIAL 0.25 MG SUBCUT (05:03)
[2024-04-28 06:11] LABS: Add Manual Diff / Slide Review NO; Basophils Absolute Auto 0 /uL (0-100); Basophils Percent Auto 0.4 % (0-2); Eosinophils Absolute Auto 200 /uL (0-450); Eosinophils Percent Auto 1.5 % (2-4); Hemoglobin 11.2 g/dL (12.0-16.0); Lymphocytes Absolute Auto 1700 /uL (1100-4500); Lymphocytes Percent Auto 15.6 % (25-40); Mean Corpuscular Hemoglobin 26.8 PG (26-34); Mean Corpuscular Volume 78.6 fL (80-100); Monocytes Absolute Auto 700 /uL (0-900); Monocytes Percent Auto 6.4 % (3-14); Neutrophils Absolute Auto 8500 /uL (1500-7000); Neutrophils Percent Auto 76.1 % (50-75); Platelet Count 156 X10^3/uL (150-400); Red Blood Cell Count 4.19 X10^6/uL (4.0-5.2); White Blood Cell Count 11.1 X10^3/uL (4.5-11.0)
[2024-04-28 06:22] LABS: Albumin 3.5 g/dL (3.5-5.0); HEMOLYSIS < 15 (0-50)
[2024-04-28 06:24] LABS: Alanine Aminotransferase 12 IU/L (<35); Albumin Globulin Ratio 1.3 (1.0-2.8); Alkaline Phosphatase 191 U/L (38-126); Aspartate Aminotransferase 22 IU/L (14-36); BUN Creatinine Ratio 23.5 (6-22); Bilirubin Total 0.4 mg/dL (0.2-1.3); Blood Urea Nitrogen 12 mg/dL (7-17); Calcium 8.8 mg/dL (8.4-10.2); Chloride 109 mmol/L (98-107); Estimated Glomerular Filt Rate > 60 mL/min (>60); Globulin 2.7 g/dL (1.7-4.1); Glucose 74 mg/dL (70-100); Potassium 3.8 mmol/L (3.4-5.1); Sodium 135 mmol/L (137-145); Total Protein 6.2 g/dL (6.3-8.2)
[2024-04-28 06:26] LABS: Carbon Dioxide 17 mmol/L (22-32)
[2024-04-28] MEDS: BETAMETHASONE 30 MG/5 ML MDV 12 MG IM (08:06)
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
--- NOTE | 2024-04-28 10:15 | PM.PREOP ---
Pre-operative Note Interval Note History & Physical reviewed/Exam performed by Physician: Yes Changes to H&P: No H&P completed within 30 days and has changed as indicated here:: 04/28/24
[2024-04-28] MEDS: LACTATED RINGERS 1,000 ML 1000 ML IV (10:29)
[2024-04-28] MEDS: CITRIC ACID/SODIUM CITRATE 15 ML SOLUTION 30 ML PO (10:29)
[2024-04-28 10:38] VITALS: BP 116/65
--- NOTE | 2024-04-28 11:35 | SUR.OPER ---
Supine on Padded OR bed, head on pillow, safety belt at thigh, arms secured on padded arm boards at <90 degrees abduction. Bump under right buttock. Legs uncrossed with pillow under knees, gel pad to heels, tape over blanket to lower legs.
[2024-04-28] MEDS: CEFAZOLIN 2 GM/100 ML PREMIX 100 ML IV (11:42)
[2024-04-28] MEDS: ACETAMINOPHEN IV 1,000 MG/100 ML VIAL 400 MG IV (12:12)
--- NOTE | 2024-04-28 12:12 | SUR.OPER ---
baby A: FHT 148: viable delivery at 1155. baby B: FHT 158: viable delivery at 1156.
[2024-04-28 12:41] VITALS: BP 109/67; PULSE 94; RESP 10; TEMP 36.8; O2SAT 95
[2024-04-28 12:45] VITALS: BP 104/65; PULSE 80; RESP 17; O2SAT 97
[2024-04-28 12:50] VITALS: BP 109/56; PULSE 84; RESP 12; O2SAT 98
[2024-04-28 12:56] VITALS: BP 101/61; PULSE 74; RESP 14; TEMP 36.7; O2SAT 97
--- NOTE | 2024-04-28 13:04 | P.OP_ITS ---
Operative Date/Time/Diagnoses Date of procedure: 04/28/24 Time of procedure: 13:04 Pre-op diagnosis: 35-3/7 weeks gestation Dichorionic/diamniotic twins Discordancy contractions Post-op diagnosis: same Procedure & Clinicians Procedure: Primary low-transverse section Same procedure as scheduled: Yes Indications: Patient is a 23-year-old 2 para 1 at 35-,3/7 weeks gestation with dichorionic diamniotic twins with discordancy She presented today with contractions and cervical change Surgeon: Razia Sanchez Click Yes if Unassisted: No Rotary Derrick Operator: Yamila Lopez Reason for Rotary Derrick Operator: The assistant warehouse manager was necessary to retract upon entry into the abdomen and uterus. She assisted with fundal pressure with delivery of both infants. She assisted with closure with retraction, clipping of suture, and closure of the contralateral fascia Anesthesia Type: Spinal (With Duramorph) Operative Notes Findings: Live female x2, both in the complete breech presentation Closure Type: primary Specimen(s): cord blood and placenta Intraoperative meds administered: Acetaminophen, Duramorph, Ketorolac and Pitocin Applied: Catheter (To continuous drainage) Estimated Blood Loss (mL): 1,000 Blood products transfused: none Procedure in detail: After informed consent was obtained, the patient was taken to the operating room where she was placed in the seated position. After spinal anesthesia with Duramorph was administered, she was placed in the dorsal supine position, with a leftward tilt, and prepped and draped in the usual sterile fashion. A time-out was performed. Prior to the prep, heart rate x2 was found and were 138, and 148. After spinal anesthesia was found to be adequate, a Pfannenstiel skin incision was made 2 fingerbreadths above the pubic symphysis, and carried through to the underlying layer of fascia. The fascia was nicked in the midline and the incision extended bilaterally with the Giron scissors. The superior aspect of the fascial incision was grasped with the Yanni clamps, elevated, and the underlying rectus muscles were dissected off sharply and bluntly. The rectus muscles were in the midline. The peritoneum was identified, grasped between 2 hemostats, and entered sharply with the Metzenbaum scissors. This incision was extended bluntly. The Bridger retractor was placed into the abdomen. The vesicouterine peritoneum was identified, grasped with a pickup, and entered sharply with the Metzenbaum scissors. This incision was extended bi laterally, and the bladder flap created digitally. The lower uterine segment was incised in a transverse fashion with scalpel. There was some bleeding on the lower edge of the uterine incision and ring forceps were placed for hemostasis. The uterine incision was extended bluntly. Upon entering the first amniotic sac there was copious clear amniotic fluid. The was found to be in the complete breech presentation. With some mild pressure the buttocks was delivered. The baby was wrapped in a warm blanket. Gentle traction and till the torso was delivered. The arms were then swept across the chest and delivered first the right arm, the baby was rotated and then the left arm. With the head kept in flexion, the head was delivered without difficulty. The infant was placed on mom's chest with a warm blanket. After 30 seconds and some milking of the cord, the cord was double clamped and cut. The infant was handed off to waiting peds. Work the second sac was identified and entered sharply with the scalpel. There was clear amniotic fluid. The second baby was then delivered width total breech extraction without difficulty. The cord was double clamped and cut after 30 seconds and some milking of the cord. The was handed off to Peds. Cord bloods were obtained from both babies. The first placenta was identified by placing a cord clamp on that cord. The Pitocin was given in the IV fluids. The placenta was delivered by expression. The uterus was cleared of all clots and debris. The uterine incision was repaired with 1. Chromic in a running interlocking fashion. A second layer of the same suture was used in an imbricating layer was performed. Hemostasis was achieved. The tubes and ovaries were examined and were found to be normal. The gutters were cleared of all clots and debris. A bladder flap was reapproximated using 2-0 Vicryl in a running fashion. The parietal peritoneum was closed using 2-0 Vicryl in a running fashion, after the Bridger retractor was removed. The fascia was reapproximated using 0 Vicryl in a running fashion. The subcutaneous layer was copiously irrigated with warm normal saline. Five simple interrupted sutures of 3-0 Vicryl were placed to reapproximate the subcutaneous layer. The skin was closed with 4-0 Monocryl in a subcuticular fashion. Steri-Strips and an Aquacel dressing were placed. The uterus was expressed of a small amount of old blood. Sponge, lap, and instrument counts were correct x2. The patient tolerated the procedure well, and was taken to PACU in stable condition. Clear yellow urine in the [place] Baby 1: Gender: Female Presentation: breech Details: complete Placental Delivery Description: Expressed Cord Vessel Description: 3 Vessels and Clamped/Cut (after 30 sec and milking) score (1 min): 7 score (5 min): 9 weight: 5 lb 13.4 oz 2: Infant Gender: Female Presentation: breech Details: complete Placental Delivery Description: Expressed Cord Vessel Description: 3 Vessels and Clamped/Cut (after 30 sec and milking) score (1 min): 7 score (5 min): 9 weight: 6 lb 5.1 oz Post-operative Condition: stable Disposition: PACU Aftercare: routine postop
[2024-04-28] MEDS: LACTATED RINGERS 1,000 ML 100 ML IV (13:27)
[2024-04-28] MEDS: OXYCODONE IR 5 MG TABLET PO ×3 (14:48→23:05)
[2024-04-28] MEDS: KETOROLAC 30 MG/ML VIAL IV (18:27)
[2024-04-28] MEDS: ACETAMINOPHEN 325 MG TABLET 650 MG PO (20:25)
[2024-04-29] MEDS: IBUPROFEN 600 MG TABLET PO ×3 (01:10→20:15)
[2024-04-29] MEDS: OXYCODONE IR 5 MG TABLET PO (04:26)
[2024-04-29] MEDS: ACETAMINOPHEN 325 MG TABLET 650 MG PO ×4 (04:26→22:43)
[2024-04-29 06:46] LABS: Add Manual Diff / Slide Review NO; Basophils Absolute Auto 100 /uL (0-100); Basophils Percent Auto 0.6 % (0-2); Eosinophils Absolute Auto 0 /uL (0-450); Eosinophils Percent Auto 0.2 % (2-4); Hematocrit 25.4 % (36-46); Hemoglobin 8.6 g/dL (12.0-16.0); Lymphocytes Absolute Auto 1900 /uL (1100-4500); Lymphocytes Percent Auto 11.3 % (25-40); Mean Corpuscular Volume 79.4 fL (80-100); Monocytes Absolute Auto 1300 /uL (0-900); Neutrophils Absolute Auto 13000 /uL (1500-7000); Neutrophils Percent Auto 79.9 % (50-75); Platelet Count 158 X10^3/uL (150-400); Red Cell Distribution Width 15.7 % (11.6-14.8); White Blood Cell Count 16.3 X10^3/uL (4.5-11.0)
[2024-04-29] MEDS: KETOROLAC 30 MG/ML VIAL IV (07:47)
[2024-04-29] MEDS: OXYCODONE IR 10 MG TABLET PO ×3 (10:20→22:00)
[2024-04-29] MEDS: DOCUSATE 100 MG CAPSULE PO (10:20)
[2024-04-29] MEDS: PRENATAL VIT,CALC/IRON/FOLIC 1 TABLET 1 TAB PO (10:20)
[2024-04-29] MEDS: IRON SUCROSE 300 MG in SODIUM CHLORIDE 0.9% 250 ML 176.667 MG IV (13:18)
--- NOTE | 2024-04-29 19:30 | P.PNOB_ITS ---
Subjective - OB Subjective Patient comments: incisional pain (on the right side), tolerating diet and flatus present baby status: doing well and nursing well [place] feeding status: breast and bottle feeding Date Patient Seen: 04/29/24 Time Patient Seen: 12:10 Interval history: POD #1 s/p primary C section for twins in PTL with discordancy Exam Vital Signs (past 8 hours): Oxygen Delivery Method Room Air Oxygen Flow Rate 0 Narrative Exam Narrative: Gen: NAD Fundus: Firm at U Incision: C/D/I with Aquacel dressing Ext: Trace edema, negative Jonathan's Objective Labs 04/29/24 06:35 04/28/24 04:50 Labs: Laboratory Results - last 24 hr 04/29/24 06:35 WBC 16.3 H RBC 3.20 L Hgb 8.6 L Hct 25.4 L MCV 79.4 L MCH 27.0 MCHC 34.0 RDW 15.7 H Plt Count 158 Neut % (Auto) 79.9 H Lymph % (Auto) 11.3 L [place] % (Auto) 8.0 Eos % (Auto) 0.2 L Baso % (Auto) 0.6 Neut # (Auto) 24651 H Lymph # (Auto) 1900 [place] # (Auto) 1300 H Eos # (Auto) 0 Baso # (Auto) 100 Assessment & Plan Plan day: 1 plan OB: routine postop care Comments: Iron infusion Anticipate discharge tomorrow Time-Based Coding :: [TOTAL MINUTES] spent with patient and on the chart (including review of chart, obtaining history, exam, reviewing outside data, placing orders, documenting exam and treatment plan, and counseling patient) on [DATE].
[2024-04-30] MEDS: IBUPROFEN 600 MG TABLET PO ×2 (02:26→08:49)
[2024-04-30] MEDS: ACETAMINOPHEN 325 MG TABLET 650 MG PO ×2 (06:44→12:28)
[2024-04-30] MEDS: DOCUSATE 100 MG CAPSULE PO (08:50)
[2024-04-30] MEDS: PRENATAL VIT,CALC/IRON/FOLIC 1 TABLET 1 TAB PO (08:50)
[2024-04-30] MEDS: INFLUENZA VACCINE QIV 0.5 ML SYRINGE IM (12:04)
--- NOTE | 2024-05-01 14:39 | PM.OBDS.1 ---
Discharge Providers Provider Date of admission: 04/28/24 03:47 Discharge Date: 04/30/24 Consults: 04/28/24 13:22 Consult to Mental Health Case Manager Routine Comment: Discharge provider: Razia Sanchez MD Summary Hospital Course Date Patient Seen: 04/30/24 Time Patient Seen: 11:15 Diagnoses: Dichorionic/diamniotic twins 35-,3/7 weeks gestation labor Discordancy anemia secondary to blood loss Hospital Course: Patient is a 23-year-old 2 para 1103 who presented on April 28, 2024 with labor. She underwent a primary low-transverse section for dichorionic/diamniotic twins who were both in the breech presentation. The procedure was without complication. Her postoperative course was unremarkable. On April 30, 2024 she was tolerating a diet, ambulating independently, no nausea or vomiting, pain well controlled, and and supplementing going well. Peripartum Data Delivery Method: Section Procedures: Spinal anesthesia with Duramorph Primary low-transverse section complications: none [place] 1: Gender: Female Disposition of : home 2: Gender: Female Disposition of : home Status at Discharge Cognitive/behavioral status at discharge: oriented Functional status at discharge: independent ambulation Overall status at discharge: patient is progressing back to baseline Time Spent with Patient Time attestation: Total time spent providing and/or coordinating discharge services: Time spent: Less than 30 minutes Objective Labs 04/29/24 06:35 04/28/24 04:50 Exam Vital Signs (past 8 hours): Oxygen Delivery Method Room Air Oxygen Flow Rate 0 Narrative Exam Narrative: Generally: Patient is sitting up in bed, no acute distress Lungs: Clear to auscultation bilaterally Cardiovascular: Regular rate and rhythm Fundus: Firm at U Incision: Clean dry and intact with Aquacel dressing Extremities: Trace edema, negative [place] Discharge Plan Discharge Plan Patient Disposition: Home Provider Discharge Comment: Call with fever, chills, redness or drainage around incision or bleeding vaginally more than a pad in an hour Push oral fluids Ibuprofen 600mg every 6 hours as needed Tylenol 650 mg every 6 hours as needed Stool softners until bowel returns to normal Discharge orders & Medications Prescriptions: New oxycodone 5 mg tablet 5 mg PO Q4H PRN (Reason: pain) Qty: 20 0RF ibuprofen 600 mg tablet 600 mg PO Q6H PRN (Reason: pain) Qty: 30 0RF hydroxyzine HCl 25 mg tablet 25 mg PO BID PRN (Reason: anxiety) Qty: 20 2RF Continued cyclobenzaprine 5 mg tablet 5 mg PO TID PRN (Reason: muscle spasm) Qty: 7 0RF ferrous sulfate [Feosol] 325 mg (65 mg iron) tablet 325 mg PO DAILY prenat.vits,jacquie,[id number] Tablet See Protocol PO DAILY Protocol: TITRATE PER PROTOCOL Discontinued aspirin [Adult Aspirin Regimen] 81 mg tablet,delayed release (DR/EC) 81 mg PO DAILY Follow up/Referrals: Razia Sanchez MD [Physician] - (My office will call on Wednesday to coordinate an incision check on Wednesday when coming into [facility]) Diet/Activity/Treatments Diet: Regular Activity: No heavy lifting Skin/Wound/Dressing Care Report to your healthcare provider any signs of infection, such as:: chills, fever, increased pain, unusual drainage and unusual redness Dressing: Do not remove Visit Report/Discharge Packet Instructions: DI for , DI for Prescription Opioid Use Stand Alone Forms: Discharge: Care, Patient Portal/API, Stroke Signs & Symptoms
== END 2024-04-30 13:43 | disposition home or self-care (01) | DRG 788 ==
PROVIDERS: Obstetrics & Gynecology; Admitting Provider Obstetrics & Gynecology; Referring Provider Obstetrics & Gynecology; Visit Provider Obstetrics & Gynecology
PROC: 10D00Z1 Extraction of Products of Conception, Low, Open Approach (ICD-10-PCS; CPT 59514; principal; 2024-04-28 13:00)
DX: O32.8XX0 Maternal care for other malpresentation of fetus, not applicable or unspecified (principal); Z37.2 Twins, both liveborn; O36.5931 Maternal care for other known or suspected poor fetal growth, third trimester, fetus 1; O30.043 Twin pregnancy, dichorionic/diamniotic, third trimester; Z3A.35 35 weeks gestation of pregnancy; O99.824 Streptococcus B carrier state complicating childbirth
CPT/HCPCS: 36415; 59025; 59050; 59510; 59514; 76815; 80053; 85025; 86850; 86900; 86901; 90471; 90656; G0378; G0379; J0134; J0690; J0702; J1100; J1756; J1885; J2274; J2405; J2765; Q2038